=== PATIENT | male | born 1995 | race African-American/Black ===

== ENCOUNTER 2023-06-09 23:44 | Emergency (ER) | payer MEDICAID, OTHER ==
[~2023-06-09] VITALS: Ht 172.7 cm; Wt 66.0 kg
[2023-06-10 00:28] VITALS: BP 119/73; PULSE 80; RESP 18; TEMP 98.6; O2SAT 99
[2023-06-10] MEDS ORDERED: PHEN1CAP86 MT (02:49)
== END 2023-06-10 03:03 | disposition home or self-care (01) ==
LOC: ER 06-10 00:32
DX: B34.9 Viral infection, unspecified (principal); R07.89 Other chest pain; R05.9 Cough, unspecified; Z20.822 Contact with and (suspected) exposure to COVID-19
CPT/HCPCS: 99283; 87426; 87804 ×2; C9803

== ENCOUNTER 2024-03-01 12:04 | Emergency (ER) | payer MEDICAID ==
[~2024-03-01] VITALS: Ht 172.7 cm; Wt 68.0 kg
[~2024-03-01 12:04] MED LIST: PHEN1CAP86 MT
[2024-03-01 12:10] VITALS: PULSE 93; RESP 16
[2024-03-01 12:16] VITALS: BP 122/82; TEMP 98.2; O2SAT 100
[2024-03-01] MEDS ORDERED: BACITRACIN ZINC OINT UDPKT TOP ONE (14:15)
[2024-03-01] MEDS ORDERED: LIDOCAINE HCL/PF 1% 10 MG/ML 5ML VIAL INFIL ONE (14:15)
[2024-03-01] MEDS ORDERED: TETANUS, DIPHTHERIA, PERTUSSIS VAC/PF 0.5ML (>10YR OLD) IM ONE (14:15)
[2024-03-01] MEDS ORDERED: ERYT1OIN6 EACHEYE (14:20)
== END 2024-03-01 14:30 | disposition home or self-care (01) ==
LOC: ER 12:04
DX: H10.9 Unspecified conjunctivitis (principal)
CPT/HCPCS: 99281